=== PATIENT | female | born 1970 | race African-American/Black ===

== ENCOUNTER 2019-01-05 16:18 | Emergency (ER) | payer OTHER ==
[~2019-01-05] VITALS: Ht 167.6 cm; Wt 123.8 kg
[2019-01-05 16:42] VITALS: BP 199/120
[2019-01-05] MEDS ORDERED: LIDOCAINE 1% Multi-Dose 20 ML VIAL. INJ ONE (17:00)
--- NOTE | 2019-01-05 17:09 | PHYS DOC ---
Adult General Chief Complaint Chief Complaint: LACERATION/AVULSION HPI HPI Patient is a 48 year old female who presents with 30 minutes prior to arrival was using a mandarin cutter and cut the tip of her left thumb. Patient rates her pain a 5 out of 10. Patient states she does not know when her last tetanus shot was. Review of Systems Review of Systems Integument: Left thumb laceration. Denies rash or skin lesions [] All other systems were reviewed and found to be within normal limits, except as documented in this note. Current Medications Current Medications Current Medications Medications (Trade) Dose Ordered Sig/[place] Start Time Stop Time Status Last Admin Dose Admin Lidocaine HCl (Lidocaine 1% 20ml Vial) 20 ml 1X ONCE 01/05/19 17:00 01/05/19 17:01 UNV Physical Exam Physical Exam Constitutional: Well developed, well nourished, no acute distress, non-toxic appearance. [] Skin: Left tip of thumb laceration. Warm, dry, no erythema, no rash. [] Extremities: Tip of left thumb tenderness, no cyanosis, no clubbing, ROM intact, no edema. [] Neurologic: Alert and oriented X 3, normal motor function, normal sensory function, no focal deficits noted. [] Psychologic: Affect normal, judgement normal, mood normal. [] EKG EKG [] Radiology/Procedures Radiology/Procedures [] Course & Med Decision Making Course & Med Decision Making Patient has a avulsion wound to the tip of the left thumb. Patient missed the nail. Skin pink warm and dry. Radial pulse present. The depth is no deeper than the epidermis. Patient can omaira at all thumb joints without complications. Patient drove herself to the ED. I have digitally blocked the thumb with 1% lidocaine. The wound is soaked in soa and water for cleaning. It is dressed. Boostrix given. Dragon Disclaimer Dragon Disclaimer This electronic medical record was generated, in whole or in part, using a voice recognition dictation system. Departure Departure Impression: Primary Impression: Finger avulsion Disposition: HOME, SELF-CARE Condition: STABLE Referrals: UNKNOWN PCP NAME (PCP) Patient Instructions: Deep Skin Avulsion Additional Instructions: Follow-up her primary care provider. Keep area clean and covered. You can use antibiotic ointment on the area. Problem Qualifiers Primary Impression: Finger avulsion Encounter type: initial encounter Qualified Codes: S61.209A - Unspecified open wound of unspecified finger without damage to nail, initial encounter JANETH BRISCOE SPA COORDINATOR Jan 05, 2019 17:09
[2019-01-05] MEDS ORDERED: DIPHTH,PERTUSS(ACELL),TET TOX 0.5 ML DISP.SYRIN. VAX IM ONE (17:15)
[2019-01-05] MEDS ORDERED: SURGICEL HEMOSTAT 4X8 EACH. TP ONE (18:45)
== END 2019-01-05 19:20 | disposition home or self-care (01) ==
LOC: ER 16:18
DX: S61.012A Laceration without foreign body of left thumb without damage to nail, initial encounter (principal); W27.8XXA Contact with other nonpowered hand tool, initial encounter; Y93.89 Activity, other specified; Y92.89 Other specified places as the place of occurrence of the external cause; Y99.8 Other external cause status
CPT/HCPCS: 64450; 90471; 90715; 99284